=== PATIENT | female | born 1960 | race Caucasian/White ===

== ENCOUNTER → 2017-08-22 | Outpatient (CLI) | payer BC ==
--- NOTE | 2017-08-22 15:41 | BD ---
EXAMINATION TYPE: MG DEXA axial skeleton. DATE OF EXAM: 08/22/2017 COMPARISON: NONE CLINICAL HISTORY: post menopausal Height: 5'2 Weight: 126 FRAX RISK QUESTIONS: Alcohol (3 or more units per day): no Family History (Parent hip fracture): no Glucocorticoids (More than 3mos): no (Ex: prednisone, prednisolone, methylprednisolone, dexamethasone, and hydrocortisone). History of Fracture in Adulthood: yes Secondary Osteoporosis: 1. Type 1 Diabetes: no 2. Hyperthyroidism: no 3. Menopause before 45: no 4. Malnutrition: no 5. Chronic liver disease: no Rheumatoid Arthritis: no Current Tobacco Use: yes RISK FACTORS HISTORY OF: Surgery to Spine/ lumbar When: 10 years ago Postmenopausal woman: MEDICATIONS: Additional Medications: cholesterol, Motrin 800 Additional History: EXAM MEASUREMENTS: Bone mineral densitometry was performed using the [employer] System. Bone mineral density about the R hip (g/cm2): 0.969 Bone mineral density about the L hip (g/cm2): 0957 T Score values are as follows: -----R Neck: -0.5 -----L Neck: -0.6 -----R Total: -0.4 -----L Total: -0.3 IMPRESSION: Normal (Values between +1 and -1 indicate normal bone mass). Consider repeating this study in 5 year s or sooner if there is some new clinical indication. NOTE: T-SCORE=SD OF THE YOUNG ADULT MEAN.
--- NOTE | 2017-08-24 10:45 | MM ---
Reason for exam: screening (asymptomatic). Last mammogram was performed 9 years and 4 months ago. History: Patient is postmenopausal and is nulliparous. Family history of breast cancer in mother at age 65 and breast cancer in sister at age 57. Physical Findings: A clinical breast exam by your physician is recommended on an annual basis and results should be correlated with mammographic findings. MG Screening Mammo w CAD Bilateral CC and MLO view(s) were taken. Prior study comparison: May 01, 2008, bilateral diagnostic digital mammog. March 09, 2004, bilateral special view mammogram. The breast tissue is heterogeneously dense. This may lower the sensitivity of mammography. No significant changes when compared with prior studies. ASSESSMENT: Benign, BI-RAD 2 RECOMMENDATION: Routine screening mammogram of both breasts in 1 year.
== END | disposition home or self-care (01) ==
LOC: RADMAMWWP 14:57
PROVIDERS: ATTEND Family Medicine
DX: Z12.31 Encounter for screening mammogram for malignant neoplasm of breast (principal); Z78.0 Asymptomatic menopausal state
CPT/HCPCS: 77080; G0202

== ENCOUNTER → 2018-01-12 | Outpatient (CLI) | payer BC ==
--- NOTE | 2018-01-12 12:29 | XR ---
EXAMINATION TYPE: XR chest 2V DATE OF EXAM: 01/12/2018 COMPARISON: NONE HISTORY: Presurgical TECHNIQUE: Frontal and lateral views of the chest are obtained. FINDINGS: There is no focal air space opacity, pleural effusion, or pneumothorax seen. The cardiac silhouette size is within normal limits. Mild spinal curvature may be present. The osseous structur es are intact. IMPRESSION: No acute cardiopulmonary process.
== END ==
LOC: LABPAT 10:12
PROVIDERS: ATTEND Orthopaedic Surgery Orthopaedic Surgery of the Spine
DX: Z01.818 Encounter for other preprocedural examination (principal); M43.10 Spondylolisthesis, site unspecified; Z01.812 Encounter for preprocedural laboratory examination
CPT/HCPCS: 71046; 80048; 81003; 85025; 85610; 85730; 86850; 86900; 86901; 87070

== ENCOUNTER 2018-01-23 05:50 | Inpatient (IN) | payer BC ==
[2018-01-10 14:16] VITALS: BMI 23.2
[2018-01-12 10:56] LABS: Basophils % (A) 1 %; Eosinophils # (A) 0.4 k/uL (0-0.7); Eosinophils % (A) 8 %; HCT 40.7 % (34.0-46.0); HGB 13.6 gm/dL (11.4-16.0); Lymphocytes # (A) 1.9 k/uL (1.0-4.8); Lymphocytes % (A) 35 %; MCH 32.3 pg (25.0-35.0); MCHC 33.4 g/dL (31.0-37.0); MCV 96.6 fL (80.0-100.0); Mean Platelet Volume 6.6; Monocytes # (A) 0.3 k/uL (0-1.0); Monocytes % (A) 6 %; Neutrophils # (A) 2.5 k/uL (1.3-7.7); Neutrophils % (A) 47 %; Platelet Count 339 k/uL (150-450); RBC 4.21 m/uL (3.80-5.40); RDW 12.1 % (11.5-15.5); WBC 5.3 k/uL (3.8-10.6)
[2018-01-12 11:09] LABS: Anion Gap 9 mmol/L; Blood Urea Nitrogen 11 mg/dL (7-17); Calcium 9.6 mg/dL (8.4-10.2); Carbon Dioxide 30 mmol/L (22-30); Chloride 100 mmol/L (98-107); Glucose 104 mg/dL (74-99); Potassium 4.5 mmol/L (3.5-5.1); Sodium 139 mmol/L (137-145)
[2018-01-12 11:10] LABS: Partial Thromboplastin Time 23.7 sec (22.0-30.0)
[2018-01-12 11:19] LABS: Appearance,Urine Clear (Clear); Bilirubin,Urine Negative (Negative); Blood,Urine Negative (Negative); Color,Urine Yellow; Glucose,Urine (UA) Negative (Negative); Ketones,Urine Negative (Negative); Leukocyte Esterase,Urine Negative (Negative); Nitrite,Urine Negative (Negative); Protein,Urine Negative (Negative); Specific Gravity,Urine 1.005 (1.001-1.035); Urobilinogen,Urine <2.0 mg/dL (<2.0)
[~2018-01-23 05:50] MED LIST: BACITRACIN 50,000 UNIT, POLYMYXIN B 500,000 UNIT in SODIUM CHLORIDE 0.9% IRRIGATIO 1,00... IRRIGATION ONE; DEXAMETHASONE SOD PHOSPHATE 10 MG/ML 1 ML VIAL IV ONE; MORPHINE SULFATE 4 MG/ML SYRINGE IV PRN; ONDANSETRON 4 MG/2 ML VIAL IVP ONE; ONDANSETRON 4 MG/2 ML VIAL IVP PRN; ceFAZolin IN SWFI 2 GM/20 ML SYRINGE IVP ONE
[2018-01-23] MEDS: LACTATED RINGERS 1,000 ML IV SCH ×2 (06:26→22:24)
[2018-01-23] MEDS ORDERED: MIDAZOLAM 2 MG/2 ML VIAL ONE ×2 (06:27→07:34)
[2018-01-23] MEDS ORDERED: MIDAZOLAM 2 MG/2 ML VIAL IVP ONE (06:30)
[2018-01-23] MEDS ORDERED: LIDOCAINE 1% INJ 10MG/ML (20 ML MDV) ONE (07:34)
[2018-01-23] MEDS ORDERED: PHENYLEPHRINE-0.9% NACL SYG 1 MG/10 ML SYRINGE ONE (07:34)
[2018-01-23] MEDS ORDERED: fentaNYL (PF) 50 MCG/ML 2 ML AMP ONE (07:34)
[2018-01-23] MEDS ORDERED: HEPARIN SODIUM,PORCINE 10,000 UNIT/ML 1 ML VIAL ONE (07:34)
[2018-01-23] MEDS ORDERED: SUCCINYLCHOLINE CHLORIDE 100 MG/5 ML SYR IV ONE (07:34)
[2018-01-23] MEDS ORDERED: PROPOFOL 10 MG/ML 20 ML VIAL IV ONE (07:34)
[2018-01-23] MEDS ORDERED: SODIUM CHLORIDE 0.9% IRRIG 1,000 ML BTL IRRIGATION ONE (07:34)
[2018-01-23] MEDS ORDERED: THROMBIN (BOVINE) 5,000 UNIT VIAL TOPICAL ONE (07:50)
[2018-01-23] MEDS ORDERED: GELATIN SPONGE,ABSORB (LARGE) 1 EACH SPONGE TOPICAL ONE (07:50)
[2018-01-23] MEDS ORDERED: LIDOCAINE 0.5% (PF) 5 MG/ML (50 ML SDV) SQ ONE (07:50)
[2018-01-23] MEDS ORDERED: LACTATED RINGERS 1,000 ML IV ONE ×3 (08:18→12:20)
[2018-01-23] MEDS ORDERED: HYDROcodone/APAP 5-325MG 1 EACH TAB PO PRN (11:42)
[2018-01-23] MEDS ORDERED: BENZOCAINE/MENTHOL LOZENG 1 EACH LOZENGE MUCOUS MEM PRN (11:42)
[2018-01-23] MEDS ORDERED: HYDROmorphone 0.5 MG/0.5 ML SYRINGE IVP PRN ×2 (11:42)
[2018-01-23] MEDS ORDERED: ONDANSETRON 4 MG/2 ML VIAL IVP PRN (11:42)
[2018-01-23] MEDS ORDERED: MAGNESIUM HYDROXIDE 2,400 MG/10 ML CUP PO PRN (11:42)
--- NOTE | 2018-01-23 11:53 | P.OP ---
Date of Procedure: 01/23/18 Preoperative Diagnosis: Degenerative scoliosis, spondylolisthesis, severe spinal stenosis, low back pain , facet arthrosis, lower extremity neuropathy, Postoperative Diagnosis: Same Anesthesia: GETA Pathology: none sent Condition: stable Disposition: PACU Description of Procedure: DESCRIPTION OF PROCEDURE(S): BRIEF OPERATIVE NOTE Preoperative Diagnosis: Degenerative scoliosis, spondylolisthesis, severe spinal stenosis 034 L4 5, facet arthrosis, low back pain, lower extremity radiculopathy, degenerative disc disease Postoperative Diagnosis: Same Procedure: Laminectomy and decompression L3 4 L4 5 with bilateral foraminotomy Minimally invasive Posterior lateral decompression and facet fusion L3 4 L4 5 Minimally invasive Transforaminal lumbar interbody fusion for a 360 fusion L3 4 L4 5 Discectomy for decompression L3 4 L4 5 Placement of interbody graft L3 4 L4 5 Local autogenous bone grafting Harvesting of bone marrow aspirated via the pedicle of L3 on the right Use of Cell Saver Use of bone graft extenders Surgeon: Dr. Kwon Sales Analytics Manager: Adriano Gallo is present throughout the entire the case persistence during positioning, dissection, exposure, visualization, and all crucial elements of the case as well as closure. Anesthesia: General anesthesiaPer Dr. Hdez Estimated blood loss:Approximately 220 mL with 69 mL given back through Cell Saver Complications: None apparent Components implanted:K2M minimally invasive [place] titanium pedicle screw system with [place] and [place] titanium interbody cages with 1 osteo amp sponge and DBX bone fibers to supplement the local autogenous bone graft and the bone marrow aspirate Disposition: To recovery room in good stable condition. OPERATIVE INDICATIONS The patient has had long-standing issues in their lower back and lower extremities. she was found to have degenerative scoliosis along with spondylolisthesis and spinal stenosis. She had severe facet arthritis disc disc degeneration. These findings correlate well with her low back pain and lower extremity radiculopathy and spinal stenosis with neurogenic claudication. She was having progressive pain despite aggressive conservative treatment and was having worsening of her regular activities due to her pain. The patient has been through conservative treatment. We discussed various treatment options including surgery, and the patient wishes to proceed with surgery We discussed the risk, patient's alternatives and benefits of surgery including but not limited to, risk of bleeding risk of infection, risk of need for further surgery, risk of decreased, loss of motion, muscle function, malunion nonunion, hardware failure, nerve damage, paralysis, heart attack, blindness and . OPERATIVE SUMMARY After discussing all the risks, patient alternatives and benefits at length, the patient elected to proceed with surgical intervention, signed informed consent, and presented for their procedure. The patient was seen and examined in the preoperative holding area and the surgical site was marked. The patient was given antibiotics and brought to the operating room. The patient was sedated and intubated by anesthesia in standard fashion. The patient was positioned on to the operating room table in a prone position on the appropriate frame which was well-padded and well molded. We were careful to pad any bony prominences and pressure points. We were careful to maintain the patient's cervical spine and good neutral alignment and position throughout. The patient was prepped and draped in a normal standard fashion. An appropriate timeout and keystone protocol performed. We were able to proceed with the surgery. The local wound area was infiltrated with local anesthetic. I was able utilize C-arm guidance to establish appropriate position over the pedicles bilaterally at the appropriate levels At L3 4 and 5. With the appropriate levels confirmed was able to make small stab incisions over the appropriate pedicle sites bilaterally. Utilizing C-arm in his house able to establish a Jamshidi needle over the lateral aspect of the pedicle and advanced the trocar into the pedicle being careful not to breech superiorly inferiorly medially or laterally. Position was confirmed regularly with AP and lateral images on C-arm. I was able to establish the trocar into the pedicle appropriately into the posterior aspect of the vertebral body bilaterally at the appropriate levels Bilaterally at L3 4 and 5. This was done at each of the pedicle positions and each of the vertebrae. at L3 on the right I ricky up approximately 20 mL of bone marrow aspirated via the the vertebral body of L3 4 supplementing the local autogenous and allograft bone graft. I was able place the guidewire into the trocar and into the vertebral body appropriately under C- arm guidance. Dissection was taken down over the wire to the appropriate starting position for the screw placed. The appropriate length screw was chosen , threaded over the guidewire and screwed appropriately into the pedicle and vertebral body under C-arm guidance in excellent alignment and position with good bony purchase. This is done at each of the screw sites at the appropriate levels At L3 4 and 5. With the screws intact I extended the incision to connect the screw hole sites on the most symptomatic side On the right. I dissected down to establish access over the pars and lamina to the base of the spinous process. I was able to expose the facet joint. The capsule the facet was taken down and showed some facet arthrosis at the joint. I was able to use a combination of curettes and [place] rongeurs and a high-speed drill to take down the facet joint and do a facetectomy. Partial laminectomy was also performed. I was able get excellent foraminal decompression and central decompression with undermining across midline to perform a laminectomy centrally and contralaterally. As able get good central decompression. The ligamentum flavum was taken down to further decompress centrally and at bilateral neural foramen. The patient had significant severe spinal stenosis and this was remedied dorsally with the laminectomy. I was able to expose the disc space and visualize the traversing nerve root. Note was made of some disc protrusion at the level causing further compression of the nerve root. I was able to establish a annulotomy at the appropriate level protecting soft tissue and neural structures. the discectomy provided further decompression anteriorly. Note was made of some disc desiccation at the disc. I performed a complete discectomy with accommodation of curettes and rasps and scrapers. I was able get good endplate preparation at the disc space. I sized for the appropriate size interbody spacer protecting the soft tissue and neural structures. The wound was copiously irrigated and suctioned dry. There is no evidence of any dural tear or leak. I was able to pack the disc space with local autogenous bone graft as well as a small amount of bone graft which was also placed into the interbody cage itself. Protecting the soft tissue structures and neural structures I was able place the interbody cage in good alignment and good position with good fit and fill at the interbody space. His issues was confirmed with C-arm guidance. Good hemostasis maintained. There is no evidence of any dural tear or leak. The wound was irrigated and suctioned dry. With the hardware intact, intraoperative C-arm imaging was again taken which showed good alignment and position of the hardware at the appropriate levels At L3 4 and 5. We were then able to measure, contour and place the rods and appropriate hardware bilaterally. I was able to place capcrews, tighten them down, and torque them with the torque screwdriver appropriately. With this intact I was able to place the local autogenous bone graft with additional bone graft enhancer as necessary into the posterior lateral gutters over the decorticated transverse processes. The remainder of the bone graft was placed over the facet joint on the contralateral side after taking down the facet joint capsule. With the bone graft intact, a stable construct, and good decompression at the appropriate levels, we were able to proceed with closure. Good hemostasis was maintained. There is no evidence of dural tear or leak. The fascia was closed for a watertight closure. he subcuticular tissue was closed with absorbable suture. The wound was cleaned and dried and dressed with the appropriate dressing. The drapes were broken down. The patient was gently rolled back onto their hospital bed being careful to maintain their cervical spine and good neutral alignment and position. They were woken up by anesthesia, extubated, and brought to the recovery room in good stable condition. The patient will be admitted to the hospital for appropriate postoperative care , medical management and monitoring. We will continue to follow them closely about the postoperative course.
[2018-01-23] MEDS: HYDROmorphone 0.5 MG/0.5 ML SYRINGE IVP PRN ×4 (11:59→12:32)
--- NOTE | 2018-01-23 11:59 | FL ---
Fluoroscopy INDICATION: Pain FINDINGS: Fluoroscopy time: 1 minute 38 seconds. Images obtained: 2. IMPRESSIONS: 1. Documentation of fluoroscopy.
[2018-01-23] MEDS: DIAZEPAM 5 MG TAB PO PRN ×2 (12:24→20:35)
[2018-01-23] MEDS ORDERED: MEPERIDINE 50 MG/ML SYRINGE IVP ONE (12:52)
[2018-01-23] MEDS ORDERED: ONDANSETRON 4 MG/2 ML VIAL IVP ONE (12:58)
[2018-01-23] MEDS: HYDROcodone/APAP 5-325MG 1 EACH TAB PO PRN ×3 (14:36→22:27)
[2018-01-23] MEDS: SODIUM CHLORIDE 0.9% 1,000 ML IV SCH (14:38)
[2018-01-23] MEDS: ceFAZolin IN SWFI 2 GM/20 ML SYRINGE IVP SCH ×2 (14:57→22:22)
--- NOTE | 2018-01-23 15:43 | P.CONS ---
History of Present Illness - Reason for Consult Consult date: 01/23/18 Medical management - Chief Complaint Back pain - History of Present Illness This is a 57-year-old female with past medical history noted below significant for chronic low back pain with severe degenerative joint disease of the lumbar spine who was admitted to the hospital and underwent discectomy with decompression of L3/L4 and L4/L5. Patient is postoperative day #0. She appears fairly uncomfortable when I saw her. She rated her pain as 43 out of 10 in severity. She received 2 [place] a little while ago with minimal relief. She otherwise does not have any complaints. I was asked to see her for medical management. Review of Systems Review of system: 14 points review of systems were obtained and were negative except to what were mentioned in the HPI. Past Medical History Past Medical History: Hyperlipidemia, Osteoarthritis (OA) History of Any Multi-Drug Resistant Organisms: None Reported Additional Past Surgical History / Comment(s): surgery for endometriosis, discectomy L5(2004) Past Anesthesia/Blood Transfusion Reactions: No Reported Reaction Smoking Status: Current every day smoker - Past Family History Mother Family Medical History: Cancer Additional Family Medical History / Comment(s): breast Sister(s) Family Medical History: Cancer Additional Family Medical History / Comment(s): breast Medications and Allergies Home Medications Medication Instructions Recorded Confirmed Type Atorvastatin [Lipitor] 40 mg PO DAILY 01/10/18 01/23/18 History Cholecalciferol [Vitamin D3] 1,000 unit PO DAILY 01/10/18 01/23/18 History HYDROcodone/APAP 5-325MG [[place] 1 tab PO TID 01/10/18 01/23/18 History 5-325] Ibuprofen 800 mg PO TID 01/10/18 01/23/18 History Multivitamins, Thera [Multivitamin 1 tab PO DAILY 01/10/18 01/23/18 History (formulary)] Vitamin B Complex 1 cap PO DAILY 01/10/18 01/23/18 History Allergies Allergy/AdvReac Type Severity Reaction Status Date / Time nickel Allergy Rash/Hives Verified 01/23/18 11:52 Physical Exam Vitals: Vital Signs Temp Pulse Pulse Resp BP BP Pulse Ox 01/23/18 15:34 97.9 F 116 H 18 152/94 100 01/23/18 15:00 115 H 14 145/99 98 01/23/18 14:45 97.6 F 113 H 16 147/86 100 01/23/18 14:30 119 H 16 151/88 100 01/23/18 14:15 97 F L 115 H 14 151/86 100 01/23/18 13:39 119 H 16 150/77 99 01/23/18 13:24 117 H 16 149/79 99 01/23/18 13:09 119 H 14 146/75 99 01/23/18 12:54 118 H 16 150/79 98 01/23/18 12:39 117 H 16 152/81 98 01/23/18 12:24 118 H 18 145/81 99 01/23/18 12:09 111 H 18 161/97 100 01/23/18 11:54 98.0 F 120 H 14 134/68 97 01/23/18 06:08 98.5 F 117 H 16 179/92 98 Intake and Output 01/23/18 01/23/18 01/23/18 06:59 14:59 22:59 Intake Total 100 3301 Output Total 440 Balance 100 2861 Intake: IV 100 3301 Output: Urine 200 Estimated Blood Loss 240 General: The patient is awake and alert, in no distress Eye: there is normal conjunctiva bilaterally. Neck: The neck is supple, there is no JVD. Cardiovascular: Normal S1-S2, no S3-S4, no murmurs. Respiratory: Lungs clear to auscultation bilaterally Gastrointestinal: Abdomen is soft, nontender Musculoskeletal: There is no pedal edema. Neurological:. Speech is normal. Skin: Skin is warm and dry Results CBC & Chem 7: 01/12/18 10:26 01/12/18 10:26 Assessment and Plan Assessment: 1. Postoperative day #0 status post discectomy with decompression of L3/L4 and L4/L5. Please refer to operative report for details about minimally invasive surgery done today. 2. Chronic low back pain/degenerative joint disease of the lumbar spine 3. Mixed hyperlipidemia on Lipitor 4. Elevated blood pressure with tachycardia secondary to uncontrolled pain. I will take the liberty to add IV morphine 2 mg every 4 hours for pain control Today, I reviewed her medication list and lab work results. Continue current regimen. Thank you very much for the consultation. I will continue to follow up on the patient closely.
[2018-01-23] MEDS: MORPHINE SULFATE 2 MG/ML SYRINGE IVP PRN (20:30)
[2018-01-24] MEDS: MORPHINE SULFATE 2 MG/ML SYRINGE IVP PRN (00:23)
[2018-01-24] MEDS ORDERED: HYDROcodone/APAP 5-325MG 1 EACH TAB ONE (02:35)
[2018-01-24] MEDS: SODIUM CHLORIDE 0.9% 1,000 ML IV SCH ×2 (06:02→07:39)
[2018-01-24 06:20] VITALS: BP 129/74; PULSE 113; RESP 16; TEMP 97.6
[2018-01-24] MEDS: DIAZEPAM 5 MG TAB PO PRN (07:08)
[2018-01-24] MEDS: HYDROcodone/APAP 5-325MG 1 EACH TAB PO PRN ×2 (07:08→11:07)
[2018-01-24 07:17] LABS: Basophils % (A) 0 %; Eosinophils # (A) 0.1 k/uL (0-0.7); Eosinophils % (A) 1 %; HCT 37.1 % (34.0-46.0); HGB 12.6 gm/dL (11.4-16.0); Lymphocytes # (A) 2.6 k/uL (1.0-4.8); Lymphocytes % (A) 29 %; MCH 32.4 pg (25.0-35.0); MCHC 33.8 g/dL (31.0-37.0); MCV 95.7 fL (80.0-100.0); Monocytes # (A) 0.9 k/uL (0-1.0); Monocytes % (A) 10 %; Neutrophils # (A) 5.3 k/uL (1.3-7.7); Neutrophils % (A) 58 %; Platelet Count 311 k/uL (150-450); RBC 3.88 m/uL (3.80-5.40); RDW 12.2 % (11.5-15.5); WBC 9.1 k/uL (3.8-10.6)
[2018-01-24 07:44] LABS: Anion Gap 8 mmol/L; Blood Urea Nitrogen 7 mg/dL (7-17); Calcium 9.1 mg/dL (8.4-10.2); Carbon Dioxide 26 mmol/L (22-30); Chloride 103 mmol/L (98-107); Glucose 83 mg/dL (74-99); Sodium 137 mmol/L (137-145)
[2018-01-24] MEDS ORDERED: CHOLECALCIFEROL 1,000 UNIT TAB PO SCH (09:00)
[2018-01-24] MEDS ORDERED: SENNOSIDES-DOCUSATE SODIUM 1 EACH TAB PO SCH (09:00)
[2018-01-24] MEDS ORDERED: ATORVASTATIN 40 MG TAB PO SCH (09:00)
[2018-01-24] MEDS ORDERED: MULTIVITAMINS, THERA 1 EACH TAB PO SCH (09:00)
[2018-01-24] MEDS ORDERED: B COMPLEX-VIT C-VIT E-ZINC 1 EACH TAB PO SCH (09:00)
[2018-01-24] MEDS ORDERED: MORPHINE ORAL SOLN 10 MG/5 ML CUP PO PRN (10:20)
[2018-01-24] MEDS ORDERED: HYDROmorphone 4 MG TABLET PO PRN (10:20)
[2018-01-24] MEDS ORDERED: HYDROmorphone 2 MG TAB PO PRN (10:20)
--- NOTE | 2018-01-24 13:01 | P.DS ---
Providers Date of admission: 01/23/18 05:50 Attending physician: Tammi Kwon Consults: 01/23/18 11:42 Consult Physician Routine Consulting Provider: Dwight Negron Consult Reason/Comments: Medical management Do you want consulting provider notified?: Yes [facility] Course: The patient presented on the day of admission as per his operative note. She had degenerative scoliosis with spinal stenosis and degenerative disc disease and underwent her surgical decompression and fusion as per her operative note. She is feeling very well postoperatively and says that her legs are doing better in her back is sore but is controlled with medicines. Physical Exam The incision site is clean dry and intact. There is no erythema no drainage. There is no purulence no evidence of infection. Abdomen soft and nontender. Chest has good excursion with deep inspiration and expiration. The patient has active and passive range of motion intact at the upper and lower extremities. There is no acute change in neurologic status. Hospital Course Postoperative day #1 status post minimally invasive decompression and fusion for her degenerative scoliosis with stenosis and degenerative disc disease with low back pain and lower extremity radiculopathy. She is doing well postoperatively and feels that she is making good progress. She is controlling her pain with oral medications and was bleeding well. She is happy with results thus far The patient has been making good progress postoperatively. They have completed the prophylactic antibiotics without any signs or symptoms of infection. The patient has been able to advance their diet , and is tolerating diet adequately. The pain was initially controlled with IV medications and is now controlled appropriately with oral medications. The patient has been able to increase their mobilization. The patient has progressed appropriately. I think they are in good stable condition for discharge today. They will be sent home with appropriate prescriptions. I answered their questions to the best of my ability in a language that they can understand and they are agreeable with the plan. They will follow up as directed in approximately 2 weeks or sooner if she is having any problems. Patient Condition at Discharge: Good Plan - Discharge Summary Discharge Rx Participant: Yes New Discharge Prescriptions: New Cyclobenzaprine [Flexeril] 10 mg PO TID PRN #90 tab PRN Reason: Spasms HYDROcodone/APAP 5-325MG [[place] 5-325] 1 - 2 tab PO Q6HR PRN #90 tab PRN Reason: Moderate To Severe Pain No Action HYDROcodone/APAP 5-325MG [[place] 5-325] 1 tab PO TID Atorvastatin [Lipitor] 40 mg PO DAILY Ibuprofen 800 mg PO TID Multivitamins, Thera [Multivitamin (formulary)] 1 tab PO DAILY Vitamin B Complex 1 cap PO DAILY Cholecalciferol [Vitamin D3] 1,000 unit PO DAILY Discharge Medication List Atorvastatin [Lipitor] 40 mg PO DAILY 01/10/18 [History] Cholecalciferol [Vitamin D3] 1,000 unit PO DAILY 01/10/18 [History] HYDROcodone/APAP 5-325MG [[place] 5-325] 1 tab PO TID 01/10/18 [History] Ibuprofen 800 mg PO TID 01/10/18 [History] Multivitamins, Thera [Multivitamin (formulary)] 1 tab PO DAILY 01/10/18 [History ] Vitamin B Complex 1 cap PO DAILY 01/10/18 [History] Cyclobenzaprine [Flexeril] 10 mg PO TID PRN #90 tab 01/24/18 [Rx] HYDROcodone/APAP 5-325MG [[place] 5-325] 1 - 2 tab PO Q6HR PRN #90 tab 01/24/18 [ Rx] Follow up Appointment(s)/Referral(s): Tammi Kwon DO [Doctor of Osteopathic Medicine] - 2 Weeks Activity/Diet/Wound Care/Special Instructions: May ambulate to tolerance. Avoid heavy or rigorous activity. No repetitive bending stooping or twisting. No lifting greater than 15 pounds. May shower with waterproof Tegaderm intact. On Sunday May remove dressing and then may shower with area uncovered, leave Steri-Strips intact and allow them to fray off on their own. Do not soak in a tub. Discharge Disposition: HOME SELF-CARE
--- NOTE | 2018-01-24 15:07 | P.PN ---
Subjective Progress Note Date: 01/24/18 Patient is status post back surgery. Pain is better controlled. Morphine discontinued this morning. And she has been started on oral [place]. Patient denies any chest pain or shortness of breath. Denies any nausea or vomiting. Reports bowel movements. She is scheduled for discharge today Objective - Vital Signs Vital signs: Vital Signs Temp 97.6 F 01/24/18 05:35 Pulse 113 H 01/24/18 05:35 Resp 16 01/24/18 05:35 BP 129/74 01/24/18 05:35 Pulse Ox 91 L 01/24/18 05:35 Intake & Output 01/23/18 01/24/18 01/24/18 18:59 06:59 18:59 Intake Total 3976 900 Output Total 440 Balance 3536 900 Intake: IV 3301 900 Sodium Chloride 0.9% 1, 900 000 ml @ 75 mls/hr IV . [id number] VALARIE Rx#:[id number] Intake, IV Titration 75 Amount Sodium Chloride 0.9% 1, 75 000 ml @ 75 mls/hr IV . [id number] VALARIE Rx#:[id number] Oral 600 Output: Urine 200 Estimated Blood Loss 240 Other: Voiding Method Toilet Toilet - Exam Head normocephalic Neck supple Lungs clear to auscultation bilaterally no wheezing or crackles Heart regular rate and rhythm S1-S2, no rub or gallop Abdomen is soft nontender nondistended positive bowel sounds no hepatosplenomegaly Extremities no edema Neuro alert and orientated to 3 - Labs CBC & Chem 7: 01/24/18 06:54 01/24/18 06:54 Labs: Abnormal Lab Results - Last 24 Hours (Table) 01/24/18 Range/Units 06:54 Creatinine 0.50 L (0.52-1.04) mg/dL Assessment and Plan Assessment: 1. Postoperative day #1 status post discectomy with decompression of L3/L4 and L4/L5. 2. Chronic low back pain/degenerative joint disease of the lumbar spine 3. Mixed hyperlipidemia on Lipitor 4. Elevated blood pressure with tachycardia secondary to uncontrolled pain. Patient still having some mild tachycardia. But she is stable for discharge. Should improve as her pain improves. Continue with the [place]. Blood pressures have stabilized Patient is medical stable for discharge. We'll have her follow-up with her PCP in 1 week I performed an examination of the patient and discussed their management with the physician Breakfast Host. I have reviewed the Physician Breakfast Host's notes and agree with the documented findings and plan of care
== END 2018-01-24 15:00 | disposition home or self-care (01) | DRG 455 ==
LOC: 2ORMAIN 05:50 → 5MS5E 11:43
PROVIDERS: ADMIT Orthopaedic Surgery Orthopaedic Surgery of the Spine; ATTEND Orthopaedic Surgery Orthopaedic Surgery of the Spine
PROC: 07DR3ZZ Extraction of Iliac Bone Marrow, Percutaneous Approach (ICD-10-PCS; principal; 2018-01-23 07:30)
PROC: 0SG1071 Fusion of 2 or more Lumbar Vertebral Joints with Autologous Tissue Substitute, Posterior Approach, Posterior Column, Open Approach (ICD-10-PCS; principal; 2018-01-23 07:30)
PROC: 0ST20ZZ Resection of Lumbar Vertebral Disc, Open Approach (ICD-10-PCS; principal; 2018-01-23 07:30)
PROC: 0SG10AJ Fusion of 2 or more Lumbar Vertebral Joints with Interbody Fusion Device, Posterior Approach, Anterior Column, Open Approach (ICD-10-PCS; principal; 2018-01-23 07:30)
DX: M48.062 Spinal stenosis, lumbar region with neurogenic claudication (principal); M47.26 Other spondylosis with radiculopathy, lumbar region; E78.2 Mixed hyperlipidemia; F17.200 Nicotine dependence, unspecified, uncomplicated; G89.29 Other chronic pain; M43.16 Spondylolisthesis, lumbar region; M41.86 Other forms of scoliosis, lumbar region; M51.16 Intervertebral disc disorders with radiculopathy, lumbar region; Z79.899 Other long term (current) drug therapy; Z79.891 Long term (current) use of opiate analgesic; Z79.1 Long term (current) use of non-steroidal anti-inflammatories (NSAID); Z91.048 Other nonmedicinal substance allergy status
CPT/HCPCS: 72100; 80048; 81003; 85025; 85610; 85730; 86850; 86891; 86900; 86901; 87070

== ENCOUNTER 2021-06-26 20:19 | Inpatient (IN) | payer BC, OTHER ==
--- NOTE | 2021-06-26 20:37 | ED ---
General Adult HPI - General Chief complaint: Arrhythmia/Palpitations Stated complaint: ABD. HEART RATE Time Seen by Provider: 06/26/21 20:29 Source: patient, RN notes reviewed Mode of arrival: wheelchair Limitations: no limitations - History of Present Illness Initial comments: Patient is a pleasant 60-year-old female presenting to the emergency department complaining of palpitations. Patient states symptoms just started today however states she may have had another times. Patient is having symptoms of racing or skipping of her heart beat lasting just a few seconds and then going away. Patient states sometimes this recur shortly afterwards, other times hours later. No chest pain. No dyspnea. No history of chronic similar problems. - Related Data Home Medications Medication Instructions Recorded Confirmed Atorvastatin [Lipitor] 40 mg PO DAILY 01/10/18 01/23/18 Cholecalciferol [Vitamin D3 (25 1,000 unit PO DAILY 01/10/18 01/23/18 Mcg = 1000 Iu)] Multivitamins, Thera [Multivitamin 1 tab PO DAILY 01/10/18 01/23/18 (formulary)] Vitamin B Complex 1 cap PO DAILY 01/10/18 01/23/18 Previous Rx's Medication Instructions Recorded Cyclobenzaprine [Flexeril] 10 mg PO TID PRN #90 tab 01/24/18 HYDROcodone/APAP 5-325MG [[place] 1 - 2 tab PO Q6HR PRN #90 tab 01/24/18 5-325] Allergies Allergy/AdvReac Type Severity Reaction Status Date / Time nickel Allergy Rash/Hives Verified 06/26/21 20:25 Review of Systems ROS Statement: Those systems with pertinent positive or pertinent negative responses have been documented in the HPI. ROS Other: All systems not noted in ROS Statement are negative. Constitutional: Denies: fever Eyes: Denies: eye pain ENT: Denies: ear pain Respiratory: Denies: cough, dyspnea Cardiovascular: Reports: palpitations. Denies: chest pain Endocrine: Denies: fatigue Gastrointestinal: Denies: abdominal pain Genitourinary: Denies: dysuria Musculoskeletal: Denies: back pain Skin: Denies: rash Neurological: Denies: weakness Past Medical History Past Medical History: Hyperlipidemia, Osteoarthritis (OA) History of Any Multi-Drug Resistant Organisms: None Reported Additional Past Surgical History / Comment(s): surgery for endometriosis, discectomy L5(2004) Past Anesthesia/Blood Transfusion Reactions: No Reported Reaction Past Psychological History: Anxiety Smoking Status: Former smoker Past Alcohol Use History: Occasional Past Drug Use History: None Reported - Past Family History Mother Family Medical History: Cancer Additional Family Medical History / Comment(s): breast Sister(s) Family Medical History: Cancer Additional Family Medical History / Comment(s): breast General Exam Limitations: no limitations General appearance: alert, in no apparent distress Head exam: Present: normocephalic Eye exam: Present: normal appearance Respiratory exam: Present: normal lung sounds bilaterally Cardiovascular Exam: Present: normal heart sounds, other (Patient is mild tachycardia with occasional premature beat) Expanded Peripheral pulses: 2+: Radial (R), Radial (L), Posterior Tibialis (R), Posterior Tibialis (L) GI/Abdominal exam: Present: soft. Absent: tenderness Extremities exam: Present: normal inspection. Absent: pedal edema, calf tenderness Neurological exam: Present: alert Psychiatric exam: Present: normal affect, normal mood Skin exam: Present: normal color Course Vital Signs 06/26/21 06/26/21 20:22 21:32 Temperature 97.8 F Pulse Rate 108 H 106 H Respiratory 18 18 Rate Blood Pressure 107/65 158/109 O2 Sat by Pulse 99 96 Oximetry - Reevaluation(s) Reevaluation #1: 06/26/21 21:43 EKG #2 shows narrow complex tachycardia with rate of 205. QRS 78. QT 228. QTC 421. Normal axis. Normal QRS. Nonspecific ST-T. EKG Findings - EKG Comments: EKG Findings:: Size tachycardia with a rate of 111. [place] 146. QRS 86. QT 350. QTC 476. Normal axis. Normal QRS. No acute ST change. Medical Decision Making - Medical Decision Making He should reevaluated and resting comfortably in bed. Patient has had 3-4 episodes in the emergency department of tachycardia. One was caught on EKG. This does appear regular however there is some concern for possible underlying flutter. Case was discussed with Dr. Salamanca, who will admit for hospital call. Cardiology will be placed on consult. - Lab Data Result diagrams: 06/26/21 21:36 06/26/21 21:36 Lab Results 06/26/21 06/26/21 06/26/21 Range/Units 21:36 21:36 21:36 WBC 6.0 (3.8-10.6) k/uL RBC 4.43 (3.80-5.40) m/uL Hgb 14.7 (11.4-16.0) gm/dL Hct 42.3 (34.0-46.0) % MCV 95.7 (80.0-100.0) fL MCH 33.2 (25.0-35.0) pg MCHC 34.7 (31.0-37.0) g/dL RDW 12.0 (11.5-15.5) % Plt Count 389 (150-450) k/uL MPV 7.4 Neutrophils % 44 % Lymphocytes % 41 % Monocytes % 4 % Eosinophils % 7 % Basophils % 1 % Neutrophils # 2.7 (1.3-7.7) k/uL Lymphocytes # 2.5 (1.0-4.8) k/uL Monocytes # 0.2 (0-1.0) k/uL Eosinophils # 0.4 (0-0.7) k/uL Basophils # 0.1 (0-0.2) k/uL PT 9.6 (9.0-12.0) sec INR 0.9 (<1.2) APTT 23.9 (22.0-30.0) sec Sodium 140 (137-145) mmol/L Potassium 3.6 (3.5-5.1) mmol/L Chloride 107 (98-107) mmol/L Carbon Dioxide 19 L (22-30) mmol/L Anion Gap 14 mmol/L BUN 12 (7-17) mg/dL Creatinine 0.74 (0.52-1.04) mg/dL Est GFR (CKD-EPI)AfAm >90 (>60 ml/min/1.73 sqM) Est GFR (CKD-EPI)NonAf 89 (>60 ml/min/1.73 sqM) Glucose 93 (74-99) mg/dL Calcium 9.5 (8.4-10.2) mg/dL Magnesium 1.7 (1.6-2.3) mg/dL Total Bilirubin 0.3 (0.2-1.3) mg/dL AST 34 (14-36) U/L ALT 26 (4-34) U/L Alkaline Phosphatase 64 (38-126) U/L Troponin I (0.000-0.034) ng/mL Total Protein 7.7 (6.3-8.2) g/dL Albumin 4.7 (3.5-5.0) g/dL TSH 2.710 (0.465-4.680) mIU/L Free T4 1.38 (0.78-2.19) ng/dL Free T3 pg/mL 5.5 H (2.8-5.3) pg/ml 06/26/21 Range/Units 21:36 WBC (3.8-10.6) k/uL RBC (3.80-5.40) m/uL Hgb (11.4-16.0) gm/dL Hct (34.0-46.0) % MCV (80.0-100.0) fL MCH (25.0-35.0) pg MCHC (31.0-37.0) g/dL RDW (11.5-15.5) % Plt Count (150-450) k/uL MPV Neutrophils % % Lymphocytes % % Monocytes % % Eosinophils % % Basophils % % Neutrophils # (1.3-7.7) k/uL Lymphocytes # (1.0-4.8) k/uL Monocytes # (0-1.0) k/uL Eosinophils # (0-0.7) k/uL Basophils # (0-0.2) k/uL PT (9.0-12.0) sec INR (<1.2) APTT (22.0-30.0) sec Sodium (137-145) mmol/L Potassium (3.5-5.1) mmol/L Chloride (98-107) mmol/L Carbon Dioxide (22-30) mmol/L Anion Gap mmol/L BUN (7-17) mg/dL Creatinine (0.52-1.04) mg/dL Est GFR (CKD-EPI)AfAm (>60 ml/min/1.73 sqM) Est GFR (CKD-EPI)NonAf (>60 ml/min/1.73 sqM) Glucose (74-99) mg/dL Calcium (8.4-10.2) mg/dL Magnesium (1.6-2.3) mg/dL Total Bilirubin (0.2-1.3) mg/dL AST (14-36) U/L ALT (4-34) U/L Alkaline Phosphatase (38-126) U/L Troponin I <0.012 (0.000-0.034) ng/mL Total Protein (6.3-8.2) g/dL Albumin (3.5-5.0) g/dL TSH (0.465-4.680) mIU/L Free T4 (0.78-2.19) ng/dL Free T3 pg/mL (2.8-5.3) pg/ml - Radiology Data Radiology results: image reviewed (Chest x-ray shows no acute process) Disposition Clinical Impression: Tachycardia Disposition: ADMITTED IP TO THIS HOSP Is patient prescribed a controlled substance at d/c from ED?: No Referrals: None,Stated [REFERRING] - 1-2 days Decision Time: 22:52
--- NOTE | 2021-06-26 21:39 | XR ---
EXAMINATION TYPE: XR chest 2V DATE OF EXAM: 06/26/2021 COMPARISON: 01/12/2018 HISTORY: Dysrhythmia TECHNIQUE: FINDINGS: Heart and mediastinum are normal. Lungs are clear. Diaphragm is normal. Bony thorax appears normal. IMPRESSION: Normal chest. No change.
[2021-06-26 21:44] LABS: Basophils # (A) 0.1 k/uL (0-0.2); Basophils % (A) 1 %; Eosinophils # (A) 0.4 k/uL (0-0.7); Eosinophils % (A) 7 %; HCT 42.3 % (34.0-46.0); HGB 14.7 gm/dL (11.4-16.0); Lymphocytes # (A) 2.5 k/uL (1.0-4.8); Lymphocytes % (A) 41 %; MCH 33.2 pg (25.0-35.0); MCHC 34.7 g/dL (31.0-37.0); MCV 95.7 fL (80.0-100.0); Mean Platelet Volume 7.4; Monocytes # (A) 0.2 k/uL (0-1.0); Monocytes % (A) 4 %; Neutrophils # (A) 2.7 k/uL (1.3-7.7); Neutrophils % (A) 44 %; Platelet Count 389 k/uL (150-450); RBC 4.43 m/uL (3.80-5.40)
[2021-06-26 22:04] LABS: INR 0.9 (<1.2); Partial Thromboplastin Time 23.9 sec (22.0-30.0); Prothrombin Time 9.6 sec (9.0-12.0)
[2021-06-26 22:06] LABS: ALT 26 U/L (4-34); AST 34 U/L (14-36); African American GFR (CKD) >90 (>60 ml/min/1.73 sqM); Albumin 4.7 g/dL (3.5-5.0); Alkaline Phosphatase 64 U/L (38-126); Anion Gap 14 mmol/L; Blood Urea Nitrogen 12 mg/dL (7-17); Calcium 9.5 mg/dL (8.4-10.2); Carbon Dioxide 19 mmol/L (22-30); Chloride 107 mmol/L (98-107); Glucose 93 mg/dL (74-99); Magnesium 1.7 mg/dL (1.6-2.3); Non-African American GFR(CKD) 89 (>60 ml/min/1.73 sqM); Potassium 3.6 mmol/L (3.5-5.1); Sodium 140 mmol/L (137-145); Total Bilirubin 0.3 mg/dL (0.2-1.3); Total Protein 7.7 g/dL (6.3-8.2)
[2021-06-26 22:23] LABS: T4, Free (Free Thyroxine) 1.38 ng/dL (0.78-2.19)
[2021-06-26] MEDS ORDERED: NALOXONE 0.4 MG/ML 1 ML VIAL IV PRN (22:52)
[2021-06-26] MEDS ORDERED: SODIUM CHLORIDE 0.9% 1,000 ML IV SCH (23:00)
[2021-06-27] MEDS ORDERED: LORazepam 2 MG/ML INJ IV PRN ×2 (03:07)
--- NOTE | 2021-06-27 03:11 | P.HPIM ---
History of Present Illness H&P Date: 06/26/21 Chief Complaint: dizziness and palpitations 60-year-old female with hyperlipidemia Patient comes in describing sudden onset episode of dizziness happened right after dinner where she felt that her heart racing without any reported shortness of breath or chest pain she claims that she is at her baseline status of health denies any cardiac history denies any similar symptoms in the past however she believes that she's been having some episodes of palpitations recently however she never felt like she did this evening for which she decided to come into the hospital she denies any recent traveling she denies any recent hospitalization she denies any sick contact denies any upper respiratory infection symptoms denies any shortness of breath chest pain nausea vomiting denies any abdominal pain denies any GI bleeding In the ED she was having short-lived frequent episodes of palpitations one of them got caught on EKG showing SVT with a heart rate in the 200 which was aborted spontaneously. Patient reports quitting smoking about 1 year ago, however she does admit to drinking at least 4 beers every day otherwise denies any changes in her general health or in her medications Review of Systems Pertinent positives as noted in HPI. All other systems were reviewed and are negative Past Medical History Past Medical History: Hyperlipidemia, Osteoarthritis (OA) History of Any Multi-Drug Resistant Organisms: None Reported Additional Past Surgical History / Comment(s): surgery for endometriosis, discectomy L5(2004) Past Anesthesia/Blood Transfusion Reactions: No Reported Reaction Past Psychological History: Anxiety Smoking Status: Former smoker Past Alcohol Use History: Occasional Past Drug Use History: None Reported - Past Family History Mother Family Medical History: Cancer Additional Family Medical History / Comment(s): breast Sister(s) Family Medical History: Cancer Additional Family Medical History / Comment(s): breast Medications and Allergies Home Medications Medication Instructions Recorded Confirmed Type Atorvastatin [Lipitor] 40 mg PO DAILY 01/10/18 01/23/18 History Cholecalciferol [Vitamin D3 (25 1,000 unit PO DAILY 01/10/18 01/23/18 History Mcg = 1000 Iu)] Multivitamins, Thera [Multivitamin 1 tab PO DAILY 01/10/18 01/23/18 History (formulary)] Vitamin B Complex 1 cap PO DAILY 01/10/18 01/23/18 History Cyclobenzaprine [Flexeril] 10 mg PO TID PRN #90 tab 01/24/18 Rx HYDROcodone/APAP 5-325MG [[place] 1 - 2 tab PO Q6HR PRN #90 tab 01/24/18 Rx 5-325] Allergies Allergy/AdvReac Type Severity Reaction Status Date / Time nickel Allergy Rash/Hives Verified 06/26/21 20:25 Physical Exam Vitals: Vital Signs Temp Pulse Resp BP Pulse Ox 06/27/21 02:00 110 H 14 96 06/27/21 01:00 100 16 129/85 95 06/26/21 21:32 106 H 18 158/109 96 06/26/21 20:22 97.8 F 108 H 18 107/65 99 Intake and Output 06/26/21 06/26/21 06/27/21 14:59 22:59 06:59 Other: Weight 61.235 kg Constitutional: No acute distress, conversant, pleasant Eyes: Anicteric sclerae, moist conjunctiva, Pupils equal round reactive to light ENMT: NC/AT Oropharynx clear, no erythema, or exudates Neck: Supple, FROM, no masses, or JVD No carotid bruits No thyromegaly Lungs: Clear to auscultation Clear to percussion Normal respiratory effort, no accessory muscle use Cardiovascular: Heart regular in rate and rhythm, No murmurs, gallops, or rubs No peripheral edema Abdominal: Soft Nontender, no guarding, rebound or rigidity Abdomen moving with respiration Normoactive bowel sounds No hepatomegaly, No splenomegaly No palpable mass No abdominal wall hernia noted Skin: Normal temperature, tone, texture, turgor No induration No subcutaneous nodules No rash, lesions No ulcers Extremities: No digital cyanosis No clubbing Pedal pulses intact and symmetrical Radial pulses intact and symmetrical No calf tenderness Psychiatric: Alert and oriented to person, place and time Appropriate affect fair judgement Neuro Muscles Strength 5/5 in all 4 extremities Sensation to light touch grossly present throughout Cranial nerves II-XII grossly intact No focal sensory deficits Lymphatics: no palpable cervical or supraclavicular , or inguinal lymph nodes Results CBC & Chem 7: 06/26/21 21:36 06/26/21 21:36 Labs: Abnormal Lab Results - Last 24 Hours (Table) 06/26/21 Range/Units 21:36 Carbon Dioxide 19 L (22-30) mmol/L Free T3 pg/mL 5.5 H (2.8-5.3) pg/ml Assessment and Plan Assessment: Paroxysmal SVT Electrolytes unremarkable Cardiac monitoring Echocardiogram Thyroid function unremarkable Cardiology consultation Monitor vital signs Alcohol dependence Monitor for alcohol withdrawal Benzodiazepines per CIWA scale Thiamine by mouth Hyperlipidemia resume statin full code DVT prophylaxis heparin subcu 3 times a day Anticipated length stay less than 2 midnights Anticipated discharge home
[2021-06-27] MEDS ORDERED: METOPROLOL TARTRATE 25 MG TAB PO SCH (09:00)
[2021-06-27] MEDS ORDERED: ATORVASTATIN 40 MG TAB PO SCH (09:00)
[2021-06-27] MEDS: HEPARIN SODIUM,PORCINE/PF 5,000 UNIT/0.5 ML SYRINGE SQ SCH ×2 (09:13→16:20)
[2021-06-27] MEDS ORDERED: ASPIRIN 81 MG PO SCH (09:15)
[2021-06-27] MEDS ORDERED: DILTIAZEM CD 180 MG CAP.ER.24H PO SCH (09:15)
--- NOTE | 2021-06-27 10:49 | ECHOF ---
Referral Reason:SVT MEASUREMENTS -------- HEIGHT: 160.0 cm WEIGHT: 61.2 kg BP: IVSd: 1.0 cm (0.6 - 1.1) LVIDd: 3.9 cm (3.9 - 5.3) LVPWd: 1.2 cm (0.6 - 1.1) IVSs: 1.6 cm LVIDs: 2.3 cm LVPWs: 1.6 cm LAESV Index (A-L): 20.64 ml/m Ao Diam: 2.9 cm (2.0 - 3.7) AV Cusp: 1.5 cm (1.5 - 2.6) LA Diam: 2.7 cm (2.7 - 3.8) MV EXCURSION: 15.618 mm (> 18.000) MV EF SLOPE: 64 mm/s (70 - 150) EPSS: 0.5 cm MV E Boy: 0.95 m/s MV DecT: 167 ms MV A Boy: 1.19 m/s MV E/A Ratio: 0.80 RAP: 5.00 mmHg RVSP: 17.37 mmHg FINDINGS -------- Resting tachycardia (HR>100bpm). This was a technically good study. The left ventricular size is normal. Left ventricular wall thickness is normal. Overall left vent ricular systolic function is normal with, an EF between 60 - 65 %. Normal LAP Grade 1 Diastolic Dys function. The right ventricle is normal in size. The left atrial size is normal. Normal LA size by volume 22+/-6 ml/m2. The right atrial size is normal. The aortic valve is trileaflet and appears structurally normal. The mitral valve is normal. There is trace mitral regurgitation. The tricuspid valve appears structurally normal. Trace tricuspid regurgitation present. Right meghan tricular systolic pressure is normal at < 35 mmHg. There is no pulmonic regurgitation present. The aortic root size is normal. Normal inferior vena cava with normal inspiratory collapse consistent with estimated right atrial pre ssure of 5 mmHg. There is no pericardial effusion. CONCLUSIONS -------- 1. The left ventricular size is normal. 2. Left ventricular wall thickness is normal. 3. Overall left ventricular systolic function is normal with, an EF between 60 - 65 %. 4. Normal LAP Grade 1 Diastolic Dysfunction. 5. There is trace mitral regurgitation. 6. Trace tricuspid regurgitation present. 7. There is no pericardial effusion. JUNIOR PHP DEVELOPER: Marina Bonner RDCS
[2021-06-27] MEDS: LORazepam 2 MG/ML INJ IV PRN ×2 (11:54→14:10)
--- NOTE | 2021-06-27 13:27 | P.CRDCN ---
History of Present Illness Consult date: 06/27/21 History of present illness: HISTORY OF PRESENT ILLNESS: This is a 60-year-old female with a past medical history significant for hyperlipidemia, former nicotine dependence, and daily alcohol use of 3-4 beers. Patient follows with a saturation equipment operator. We have been asked to see the patient in consultation for tachycardia. Patient examined at the bedside in the emergency room. Patient presented to the hospital for chief complaint of palpitations. P mauri states that she usually gets palpitations everyday but they usually last for a few seconds and go away. Patient states this time her palpitations lasted for approximately an hour. She also reports that she was lightheaded with her palpitations which is unusual for her. The patient presented to the emergency room for further evaluation. Patient was found to be in atrial flutter with a heart rate of 205. Patient converted to sinus mechanism spontaneously. She currently denies chest pain or pressure. She does report that her chest feels "like an ache". That said telemetry reveals sinus tachycardia with a heart rate around 110. Patient reports daily alcohol use and states she drinks 3-4 beers a day. She is a former smoker and states she quit smoking 1 year ago. Patient also reports drinking approximately one pot of coffee per day. EKG reveals atrial flutter with RVR Chest xray normal chest. No change. Laboratory data: WBC 6.0. Hemoglobin 14.7. Platelet count 389. D-dimer 0.54. Sodium 140. Potassium 3.6. BUN 12. Creatinine 0.74. Magnesium 1.7. Troponin negative 3. TSH 2.710. Current home cardiac medications include Lipitor 40 mg daily Echocardiogram obtained revealed ejection fraction 60-65%, trace mitral regurgitation, and trace tricuspid regurgitation REVIEW OF SYSTEMS: At the time of my exam: CONSTITUTIONAL: Denies fever or chills. HEENT: Denies blurred vision, vision changes, or eye pain. Denies hemoptysis CARDIOVASCULAR: Denies chest pain. Denies orthopnea. Denies PND. Denies palpitations RESPIRATORY: Denies shortness of breath. GASTROINTESTINAL: Denies abdominal pain. Denies nausea or vomiting. HEMATOLOGIC: Denies bleeding disorders. GENITOURINARY: Denies any blood in urine. SKIN: Denies pruitis. Denies rash. PHYSICAL EXAM: VITAL SIGNS: Reviewed. GENERAL: Well-developed in no acute distress. HEENT: Head is normocephalic. Pupils are equal, round. Sclerae anicteric. Mucous membranes of the mouth are moist. Neck supple. No JVD or thyromegaly LUNGS: Respirations even and unlabored. Lungs essentially clear to auscultation bilaterally. HEART: Tachycardic. Regular rate and rhythm. S1 and S2 heard. ABDOMEN: Soft. Nondistended. Nontender. EXTREMITIES: Normal range of motion. No clubbing or cyanosis. Peripheral pulses intact. No lower extremity edema NEUROLOGIC: Awake and alert. Oriented x 3. ASSESSMENT: Palpitations New-onset paroxysmal typical atrial flutter with RVR Hyperlipidemia Former nicotine dependence Daily alcohol use PLAN: 2D echo obtained and reviewed. TSH within normal limits Continue lipitor 40mg daily Add Cardizem CD 120mg daily Chadvasc score 1. No anticoagulation recommended. However, will begin aspirin 81mg daily Smoking cessation recommended Alcohol abstinence recommended Recommend decrease in patient's caffeine intake Patient may be discharged home today from a cardiac standpoint. She is to follow up on an outpatient basis with Dr. Nguyen Nurse practitioner note has been reviewed by physician. Signing provider agrees with the documented findings, assessment, and plan of care. Past Medical History Past Medical History: Hyperlipidemia, Osteoarthritis (OA) History of Any Multi-Drug Resistant Organisms: None Reported Additional Past Surgical History / Comment(s): surgery for endometriosis, discectomy L5(2004) Past Anesthesia/Blood Transfusion Reactions: No Reported Reaction Past Psychological History: Anxiety Smoking Status: Former smoker Past Alcohol Use History: Occasional Past Drug Use History: None Reported - Past Family History Mother Family Medical History: Cancer Additional Family Medical History / Comment(s): breast Sister(s) Family Medical History: Cancer Additional Family Medical History / Comment(s): breast Medications and Allergies Home Medications Medication Instructions Recorded Confirmed Type Cholecalciferol (Vitamin D3) 125 mcg PO DAILY 06/27/21 06/27/21 History [Vitamin D3 (125 MCG = 5,000 IU)] Multivit with Calcium,Iron,Min 1 tab PO DAILY 06/27/21 06/27/21 History [Women's Multivitamin] Vitamin B Complex 1 cap PO DAILY 06/27/21 06/27/21 History Allergies Allergy/AdvReac Type Severity Reaction Status Date / Time nickel Allergy Rash/Hives Verified 06/27/21 08:05 Physical Exam Vitals: Vital Signs Temp Pulse Resp BP Pulse Ox 06/27/21 06:00 101 H 14 95 06/27/21 02:00 110 H 14 96 06/27/21 01:00 100 16 129/85 95 06/26/21 21:32 106 H 18 158/109 96 06/26/21 20:22 97.8 F 108 H 18 107/65 99 Intake and Output 06/26/21 06/27/21 06/27/21 22:59 06:59 14:59 Other: Weight 61.235 kg Results 06/26/21 21:36 06/26/21 21:36 Cardiac Enzymes 06/26/21 06/26/21 06/27/21 Range/Units 21:36 21:36 00:11 AST 34 (14-36) U/L Troponin I <0.012 <0.012 (0.000-0.034) ng/mL 06/27/21 Range/Units 03:42 AST (14-36) U/L Troponin I <0.012 (0.000-0.034) ng/mL Coagulation 06/26/21 Range/Units 21:36 PT 9.6 (9.0-12.0) sec APTT 23.9 (22.0-30.0) sec CBC 06/26/21 Range/Units 21:36 WBC 6.0 (3.8-10.6) k/uL RBC 4.43 (3.80-5.40) m/uL Hgb 14.7 (11.4-16.0) gm/dL Hct 42.3 (34.0-46.0) % Plt Count 389 (150-450) k/uL Comprehensive Metabolic Panel 06/26/21 Range/Units 21:36 Sodium 140 (137-145) mmol/L Potassium 3.6 (3.5-5.1) mmol/L Chloride 107 (98-107) mmol/L Carbon Dioxide 19 L (22-30) mmol/L BUN 12 (7-17) mg/dL Creatinine 0.74 (0.52-1.04) mg/dL Glucose 93 (74-99) mg/dL Calcium 9.5 (8.4-10.2) mg/dL AST 34 (14-36) U/L ALT 26 (4-34) U/L Alkaline Phosphatase 64 (38-126) U/L Total Protein 7.7 (6.3-8.2) g/dL Albumin 4.7 (3.5-5.0) g/dL Current Medications Generic Name Dose Route Start Last Admin Trade Name Freq PRN Reason Stop Dose Admin Atorvastatin Calcium 40 mg 06/27/21 09:00 Atorvastatin 40 Mg Tab PO DAILY VALARIE Heparin Sodium (Porcine) 5,000 unit 06/27/21 08:00 Heparin Sodium,Porcine/Pf 5,000 Unit/0.5 Ml Syringe SQ Q8HR VALARIE Sodium Chloride 1,000 mls @ 20 mls/hr 06/26/21 23:00 06/27/21 00:09 Saline 0.9% IV 20 mls/hr .Q24H VALARIE Administration Lorazepam 1 mg 06/27/21 03:07 Lorazepam 2 Mg/Ml Inj IV Q2HR PRN CIWA 8 or 9 Lorazepam 1 mg 06/27/21 03:07 Lorazepam 2 Mg/Ml Inj IV Q1HR PRN CIWA 10 to 15 Lorazepam 2 mg 06/27/21 03:07 Lorazepam 2 Mg/Ml Inj IV 06/29/21 03:08 Q10M PRN CIWA 16 or higher Naloxone HCl 0.2 mg 06/26/21 22:52 Naloxone 0.4 Mg/Ml 1 Ml Vial IV Q2M PRN Opioid Reversal Thiamine HCl 100 mg 06/27/21 17:30 Thiamine 100 Mg Tab PO BID-W/MEALS VALARIE Intake and Output 06/26/21 06/27/21 06/27/21 22:59 06:59 14:59 Other: Weight 61.235 kg 06/26/21 21:36 06/26/21 21:36
--- NOTE | 2021-06-27 15:23 | P.DS ---
Providers Date of admission: 06/27/21 10:12 Expected date of discharge: 06/27/21 Attending physician: Cassidy Sin MD Consults: 06/26/21 22:52 Consult Physician Routine Consulting Provider: Alli Medrano Consult Reason/Comments: Recurrent neuro complex tachycardia Do you want consulting provider notified?: Yes Primary care physician: [facility] Hospital Course: 60-year-old female with a past medical history significant for hyperlipidemia, former nicotine dependence, and daily alcohol use of 3-4 beers presented with s with palpitations. Patient states that she usually gets palpitations everyday but they usually last for a few seconds and go away. Patient states this time her palpitations lasted for approximately an hour. She also reported that she was lightheaded with her palpitations which is unusual for her. In the ER she was found to be in atrial flutter with a heart rate of 205. Patient converted to sinus mechanism spontaneously. Currently telemetry reveals sinus tachycardia with a heart rate around 110. Patient reports drinking approximately one pot of coffee per day. EKG reveals atrial flutter with RVR. Chest xray normal chest. Laboratory data: WBC 6.0. Hemoglobin 14.7. Platelet count 389. D-dimer 0.54. Sodium 140. Potassium 3.6. BUN 12. Creatinine 0.74. Magnesium 1.7. Troponin negative 3. TSH 2.710. Echocardiogram obtained revealed ejection fraction 60-65%, trace mitral regurgitation, and trace tricuspid regurgitation. Sje was seen by cardiology, chadvasc score was 1, no AC was started, cardizem cd was added to her meds. She was advised to decrease caffeine intake. Will need to follow up on an outpatient basis with Dr. Nguyen. Currently doing well. will d/c. Plan - Discharge Summary Discharge Rx Participant: No New Discharge Prescriptions: No Action Vitamin B Complex 1 cap PO DAILY Multivit with Calcium,Iron,Min [Women's Multivitamin] 1 tab PO DAILY Cholecalciferol (Vitamin D3) [Vitamin D3 (125 MCG = 5,000 IU)] 125 mcg PO DAILY Discharge Medication List Cholecalciferol (Vitamin D3) [Vitamin D3 (125 MCG = 5,000 IU)] 125 mcg PO DAILY 06/27/21 [History] Multivit with Calcium,Iron,Min [Women's Multivitamin] 1 tab PO DAILY 06/27/21 [History] Vitamin B Complex 1 cap PO DAILY 06/27/21 [History] Follow up Appointment(s)/Referral(s): Con Nguyen DO [STAFF PHYSICIAN] - 1 Week None,Stated [REFERRING] - 1-2 days
[2021-06-27 16:26] VITALS: BP 147/70; PULSE 104; RESP 15; TEMP 97.6
[2021-06-27] MEDS ORDERED: THIAMINE 100 MG TAB PO SCH (17:30)
== END 2021-06-27 16:23 | disposition home or self-care (01) | DRG 310 ==
LOC: EC 20:19 → 3SCARD 22:52 → OBSVTOIN 06-27 10:12
PROVIDERS: ADMIT Internal Medicine; ATTEND Internal Medicine
DX: I47.1 Supraventricular tachycardia (principal); I48.3 Typical atrial flutter; Z20.822 Contact with and (suspected) exposure to COVID-19; E78.5 Hyperlipidemia, unspecified; F10.20 Alcohol dependence, uncomplicated; F41.9 Anxiety disorder, unspecified; Z91.048 Other nonmedicinal substance allergy status; Z87.891 Personal history of nicotine dependence; Z79.899 Other long term (current) drug therapy; Z98.890 Other specified postprocedural states
CPT/HCPCS: 36415; 71046; 80053; 83735; 84439; 84443; 84481; 84484; 85025; 85379; 85610; 85730; 87635; 93005; 93306; 96372; 96374; 99285